=== PATIENT | female | born 1970 | race Caucasian/White ===

== ENCOUNTER 2025-06-09 17:31 | Emergency (ER) | payer OTHER | END 2025-06-09 18:58 | disposition home or self-care (01) | LOC: JP.ED 17:31 | DX: S06.0X1A Concussion with loss of consciousness of 30 minutes or less, initial encounter (principal); V86.92XA Unspecified occupant of snowmobile injured in nontraffic accident, initial encounter | CPT/HCPCS: 70450; 72125; 76377; 99284 ==